=== PATIENT | male | born 1970 | race Caucasian/White ===

== ENCOUNTER 2020-06-29 07:51 | Day surgery (SDC) | payer OTHER ==
[2020-06-24 13:24] VITALS: BMI 40.6
[~2020-06-29 07:51] MED LIST: LACTATED RINGERS 1,000 ML IV SCH; LIDOCAINE 1% (10MG/ML) FOR IV START INTRADERMA PRN
[2020-06-29 08:14] VITALS: TEMP 98
[2020-06-29] MEDS ORDERED: PROPOFOL 10 MG/ML 20 ML VIAL IV ONE (08:25)
[2020-06-29] MEDS ORDERED: MIDAZOLAM 2 MG/2 ML VIAL ONE (08:25)
--- NOTE | 2020-06-29 08:29 | P.GSHP ---
History of Present Illness H&P Date: 06/29/20 Chief Complaint: Positive cologuard Patient or today for colonoscopy. No bowel habit changes. No rectal bleeding or melena. Patient had a recent cologuard positive test Past Medical History Additional Past Medical History / Comment(s): states "positive cologuard" History of Any Multi-Drug Resistant Organisms: None Reported Past Surgical History: Orthopedic Surgery Additional Past Surgical History / Comment(s): ear drum reconstruction, knee arthroscopy Past Anesthesia/Blood Transfusion Reactions: Previous Problems w/ Anesthesia Additional Past Anesthesia/Blood Transfusion Reaction / Comment(s): states "I wake up weepy" Smoking Status: Never smoker Medications and Allergies Home Medications Medication Instructions Recorded Confirmed Type Loratadine [Claritin] 10 mg PO DAILY 06/24/20 06/29/20 History Losartan/Hydrochlorothiazide 1 tab PO QAM 06/24/20 06/29/20 History [Losartan-Hctz 100-25 mg Tab] [place]-3 Fatty Acids/Fish Oil [Fish 1 each PO DAILY 06/24/20 06/29/20 History Oil 1,000 mg Softgel] Tumeric 1 tab PO DAILY 06/24/20 06/29/20 History Ubidecarenone [Co Q-10] 100 mg PO DAILY 06/24/20 06/29/20 History amLODIPine BESYLATE 10 mg PO QAM 06/24/20 06/29/20 History Allergies Allergy/AdvReac Type Severity Reaction Status Date / Time No Known Allergies Allergy Verified 06/29/20 08:09 Surgical - Exam Vital Signs Temp Pulse Resp BP Pulse Ox 98.0 F 101 H 16 157/84 98 06/29/20 08:06 06/29/20 08:06 06/29/20 08:06 06/29/20 08:06 06/29/20 08:06 Physical exam: General: Well-developed, well-nourished HEENT: Normocephalic, sclerae nonicteric Abdomen: Nontender, nondistended Extremities: No edema Neuro: Alert and oriented Assessment and Plan (1) Blood in stool Narrative/Plan: Will proceed with colonoscopy at this time Current Visit: Yes Status: Acute Code(s): K92.1 - MELENA SNOMED Code(s): 556609364
--- NOTE | 2020-06-29 08:46 | P.PCN ---
Date of Procedure: 06/29/20 Procedure(s) Performed: PREOPERATIVE DIAGNOSIS: Positive cologuard POSTOPERATIVE DIAGNOSIS: Descending and sigmoid colon polyp PROCEDURE: Colonoscopy with snare polypectomy ANESTHESIA: MAC SURGEON: Alexis Gonzalez M.D. SPECIMENS: Polyps ENDOSCOPIC PROCEDURE: The patient was placed on the endoscopy table in the left decubitus position. The Olympus colonoscope was inserted into the anus and passed under direct visualization to the base of the cecum. The appendiceal orifice was visualized. From that point the scope was slowly withdrawn inspecting all surfaces carefully. There were no neoplastic inflammatory or polypoid lesions throughout the cecum, ascending, and transverse colon. In the descending colon at 50 cm a pedunculated polyp was identified and removed using the snare with cautery technique. In the sigmoid colon a slightly larger 1 cm 35 cm polyp was seen and removed in a similar fashion. The remainder of the sigmoid and rectum was normal. There was no visible diverticulosis. Digital rectal examination was normal. The patient was taken to the recovery room in stable condition per anesthesia guidelines. RECOMMENDATIONS: Await biopsy results. May require follow-up colonoscopy 3 years.
[2020-06-29 09:03] VITALS: BP 132/78; PULSE 84; RESP 16
== END 2020-06-29 09:17 | disposition home or self-care (01) ==
LOC: ORWHC2ENDO 07:51
PROVIDERS: ATTEND Surgery
DX: D12.4 Benign neoplasm of descending colon (principal); D12.5 Benign neoplasm of sigmoid colon; Z79.899 Other long term (current) drug therapy; Z98.890 Other specified postprocedural states; I10 Essential (primary) hypertension
CPT/HCPCS: 88305; 45385; J2250; J2704

== ENCOUNTER → 2022-11-07 | Outpatient (CLI) | payer OTHER ==
--- NOTE | 2022-11-07 12:33 | XR ---
EXAMINATION TYPE: XR ankle complete LT DATE OF EXAM: 11/07/2022 12:27 PM INDICATION: Patient age:Male; 52 years old; Reason for study: M25.572; [facility]. COMPARISON: None TECHNIQUE: The left ankle is imaged in frontal, lateral and oblique projections. FINDINGS: There is no evidence of acute osseous pathology. The joint spaces are well-preserved without evidenc e of subluxation or dislocation. Kager's fat pad is intact. Mild soft tissue swelling around the ankl e. No radiopaque foreign bodies are identified. Calcaneal Achilles enthesophyte and plantar spurring. IMPRESSION: 1. No evidence of acute fracture. 2. Subcutaneous swelling around the ankle likely secondary to underlying soft tissue injury.
== END | disposition home or self-care (01) ==
LOC: RADXRMAIN 11:47
PROVIDERS: ATTEND Family Medicine
DX: S99.912A Unspecified injury of left ankle, initial encounter (principal); X58.XXXA Exposure to other specified factors, initial encounter